=== PATIENT | female | born 2000 | race Caucasian/White ===

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

== ENCOUNTER → 2021-03-23 13:28 | Outpatient (POV) | payer BC, OTHER, SELFPAY | PROVIDERS: Visit Provider Dermatology | DX: Z00.00 Encounter for general adult medical examination without abnormal findings (principal) ==

== ENCOUNTER 2024-08-09 10:50 | Outpatient (CLI) | payer BC, SELFPAY ==
[2024-08-09 16:17] LABS: Basophils % 0.4 % (0.1-2.0); Eosinophils # 0.1 K/mm3 (0.0-0.4); Hemoglobin 13.6 g/dL (12.2-16.2); Lymphocytes # 2.3 K/mm3 (0.7-4.5); Lymphocytes % 31.1 % (10-50); Mean Corpuscular HGB Conc 32.4 g/dL (31.8-35.4); Mean Corpuscular Hemoglobin 26.6 pg (27.0-31.2); Mean Platelet Volume 10.1 fl (7.4-10.4); Monocytes # 0.5 K/mm3 (0.1-1.0); Monocytes % 7.3 % (1.7-9.3); Neutrophils # 4.3 K/mm3 (1.8-7.8); Neutrophils % 59.8 % (37.0-80.0); Nucleated Red Blood Cells # 0 10^3/uL; Nucleated Red Blood Cells % 0 %; Platelet Count 368 K/mm3 (142-424); Red Blood Count 5.12 M/mm3 (4.20-5.40); Red Cell Distribution Width 12.8 % (11.5-17.5); Red Cell Distribution Width-SD 38.5 fL; White Blood Count 7.3 K/mm3 (4.8-10.8)
[2024-08-09 16:27] LABS: Chloride 102 mmol/L (98-107)
[2024-08-09 16:28] LABS: Albumin Level 4.9 g/dl (3.5-5.0); Potassium 4.3 mmoL/L (3.5-5.1); Sodium 139 mmol/L (136-145)
[2024-08-09 16:30] LABS: Blood Urea Nitrogen 15 mg/dl (7-17); Estimated Glomerular Filt Rate 105 ml/min (>60); GFR (African American) 127 ML/MIN (>60)
[2024-08-09 16:31] LABS: Alanine Aminotransferase 40 U/L (12-78); Albumin/Globulin Ratio 1.8 (1.1-1.8); Alkaline Phosphatase 74 U/L (38-126); Anion Gap 16.3 mEq/L (5-15); Aspartate Amino Transferase 35 U/L (14-36); Bilirubin,Total 0.6 mg/dl (0.2-1.3); Calcium 9.3 mg/dl (8.4-10.2); Carbon Dioxide 25 mmol/L (22.0-30.0); Globulin 2.7 g/dL (1.3-3.2); Glucose 62 mg/dl (74-100); Total Protein,Serum 7.6 g/dl (6.3-8.2)
[2024-08-09 16:48] LABS: 25-OH Vitamin D, Total 30.7 ng/mL (30-100)
[2024-08-09 16:49] LABS: Triiodothryronine (T3) Uptake 31 % (23.5-40.5)
[2024-08-09 16:50] LABS: T4 (Thyroxine) 9.7 ug/dl (5.53-11.0)
[2024-08-09 16:59] LABS: HCG,Quantitative < 2 mIU/ml (0-5.42)
[2024-08-09 17:04] LABS: Thyroid Stimulating Hormone 1.66 uIU/mL (0.465-4.68)
[2024-08-09 17:20] LABS: Hepatitis C Ab Qual. W/ RFX NEGATIVE (Negative)
[2024-08-09 19:26] LABS: HIV Combo NEGATIVE (Negative); Hemoglobin A1C 5.6 % (4.0-6.0)
[2024-08-13 12:42] LABS: FSH 3.8 mIU/mL (.); Insulin Level Total 59.1 uIU/mL (2.6-24.9); LH 9.4 mIU/mL (.); Progesterone 2.9 ng/mL (.); Testosterone,Total 51 ng/dL (13-71)
== END 2024-08-09 23:59 | disposition home or self-care (01) ==
LOC: LAB.DROPOF 08-12 10:51
PROVIDERS: PCP Nurse Practitioner Family; Visit Provider Nurse Practitioner Family
DX: Z11.4 Encounter for screening for human immunodeficiency virus [HIV] (principal); Z11.59 Encounter for screening for other viral diseases; N92.6 Irregular menstruation, unspecified
CPT/HCPCS: 80053; 82306; 83001; 83002; 83036; 83525; 84144; 84403; 84436; 84443; 84479; 84702; 85025; 86803; 87389